=== PATIENT | male | born 1990 | race Caucasian/White ===

== ENCOUNTER 2016-12-03 15:07 | Emergency (ER) | payer OTHER, MEDICAID ==
[2016-12-03 15:15] VITALS: O2SAT 93
[2016-12-03] MEDS ORDERED: ALBUTEROL INH PREPACK MDI TAKEHOME ONE (15:33)
[2016-12-03] MEDS ORDERED: DEXAMETHASONE 4 MG TAB PO ONE (15:44)
--- NOTE | 2016-12-03 15:48 | EDPHY ---
H & P Stated Complaint: hx asthma/sob since friday/is out of his inhaler Time Seen by Provider: 12/03/16 15:19 HPI/ROS: CHIEF COMPLAINT: asthma HISTORY OF PRESENT ILLNESS: The patient is a 26-year-old man who comes to the emergency department requesting he a refill of his albuterol. He states that he has intermittent asthma but rarely requires an inhaler. He ran out of his about a year ago and this is 1 that he had borrowed from a friend. He denies any recent fevers. Over the last 2-3 days he has increasing shortness of breath and wheezing. REVIEW OF SYSTEMS: Constitutional: denies: chills, fever, recent illness, recent injury EENTM: denies: blurred vision, double vision, nose congestion Respiratory: See HPI Cardiac: denies: chest pain, irregular heart rate, lightheadedness, palpitations Gastrointestinal/Abdominal: denies: abdominal pain, diarrhea, nausea, vomiting, blood streaked stools Genitourinary: denies: dysuria, frequency, hematuria, pain Musculoskeletal: denies: joint pain, muscle pain Skin: denies: lesions, rash, jaundice, bruising Neurological: denies: headache, numbness, paresthesia, tingling, dizziness, weakness Hematologic/Lymphatic: denies: blood clots, easy bleeding, easy bruising Immunologic/allergic: denies: HIV/AIDS, transplant EXAM: GENERAL: Well-appearing, well-nourished and in no acute distress. HEAD: Atraumatic, normocephalic. EYES: Pupils equal round and reactive to light, extraocular movements intact, sclera anicteric, conjunctiva are normal. ENT: TMs normal, nares patent, oropharynx clear without exudates. Moist mucous membranes. NECK: Normal range of motion, supple without lymphadenopathy or JVD. LUNGS: Bilateral wheezing HEART: Regular rate and rhythm without murmurs, rubs or gallops. ABDOMEN: Soft, nontender, normoactive bowel sounds. No guarding, no rebound. No masses appreciated. BACK: No CVA tenderness, no spinal tenderness, step-offs or deformities EXTREMITIES: Normal range of motion, no pitting or edema. No clubbing or cyanosis. NEUROLOGICAL: Cranial nerves II through XII grossly intact. Normal speech, normal gait. 5/5 strength, normal movement in all extremities, normal sensation PSYCH: Normal mood, normal affect. SKIN: Warm, dry, normal turgor, no visible rashes or lesions. Source: Patient Exam Limitations: No limitations - Personal History Current Tetanus/Diphtheria Vaccine: Yes - Medical/Surgical History Hx Asthma: Yes Hx Chronic Respiratory Disease: No Hx Diabetes: No Hx Cardiac Disease: No Hx Renal Disease: No Hx Cirrhosis: No Hx Alcoholism: No Hx HIV/AIDS: No Hx Splenectomy or Spleen Trauma: No Other PMH: DEPRESSION - Family History Significant Family History: No pertinent family hx - Social History Smoking Status: Current every day smoker Alcohol Use: Occasionally Drug Use: Marijuana Constitutional: Initial Vital Signs Temperature (C) 36.4 C 12/03/16 15:13 Heart Rate 82 12/03/16 15:13 Respiratory Rate 17 12/03/16 15:13 Blood Pressure 119/82 H 12/03/16 15:13 O2 Sat (%) 93 12/03/16 15:13 O2 Delivery Mode Room Air Allergies/Adverse Reactions: duloxetine HCl [From Cymbalta] Allergy (Verified 12/03/16 15:13) zolpidem tartrate [From Ambien] Allergy (Verified 12/03/16 15:13) Home Medications: Medication Instructions Recorded Albuterol 5 mg/ml INH 12/03/16 Albuterol [Proventil Inhaler] 1 - 2 puffs IH Q4H #1 mdi 12/03/16 Medical Decision Making ED Course/Re-evaluation: Patient refuses DuoNeb. He states that the inhaler works much better for him. He also requested steroid burst. He declines observation. I will prescribe him a refill. Differential Diagnosis: Partial list of the Differential diagnosis considered include but were not limited to; asthma exacerbation, upper respiratory tract infection and although unlikely based on the history and physical exam, I also considered bronchitis, pneumonia, congestive heart failure. I discussed these differential diagnoses and the plan with the patient as well as the usual and expected course. The patient understands that the diagnosis is provisional and that in medicine we are not always correct and that further workup is often warranted. Usual and customary warnings were given. All of the patient's questions were answered. The patient was instructed to return to the emergency department should the symptoms at all worsen or return, otherwise to followup with the physician as we discussed. Departure - Departure Disposition: Home, Routine, Self-Care Clinical Impression: Exacerbation of asthma Condition: Fair Instructions: Asthma (ED) Referrals: [facility],. [Clinic] - As per Instructions Prescriptions: Albuterol [Proventil Inhaler] 1 - 2 puffs IH Q4H #1 mdi
[2016-12-03 16:18] VITALS: BP 120/74; PULSE 85; RESP 18; TEMP 97.9
== END 2016-12-03 16:18 | disposition home or self-care (01) ==
DX: J45.901 Unspecified asthma with (acute) exacerbation (principal); F17.200 Nicotine dependence, unspecified, uncomplicated

== ENCOUNTER 2017-04-30 14:45 | Emergency (ER) | payer OTHER, MEDICAID ==
[2017-04-30 14:49] VITALS: RESP 16
[2017-04-30] MEDS ORDERED: KETOROLAC 30 MG/1 ML SDV IM ONE (15:25)
--- NOTE | 2017-04-30 15:27 | EDPHY ---
H & P Stated Complaint: L lateral pain in neck x 3 days;thinks he slept wrong on it Time Seen by Provider: 04/30/17 15:13 HPI/ROS: Chief complaint: Left-sided neck pain History of present illness: This is a 26-year-old male who presents to the emergency department for left-sided neck pain. Patient reports symptoms began 3 days ago. He was skateboarding when he fell off and landed onto his knees. His head whipped forward. However he did not hit his head or neck against the ground. Initially he felt well. However over the last few days he has had increasing left-sided neck pain. It makes it difficult to move the neck. He denies other associated signs or symptoms including no headache, no pain along the spine itself, no neurologic symptoms such as paresthesias, weakness or paralysis or bowel or bladder dysfunction. No other complaints. - Personal History Current Tetanus Diphtheria and Acellular Pertussis (TDAP): Yes - Medical/Surgical History Hx Asthma: Yes Hx Chronic Respiratory Disease: No Hx Diabetes: No Hx Cardiac Disease: No Hx Renal Disease: No Hx Cirrhosis: No Hx Alcoholism: No Hx HIV/AIDS: No Hx Splenectomy or Spleen Trauma: No Other PMH: DEPRESSION - Social History Smoking Status: Current every day smoker - Physical Exam Exam: General Appearance: Alert, nontoxic Eyes: PERRLA ENT: No hemotympanum, no Mishra sign, no raccoon eyes. Respiratory: Lungs clear to auscultation bilaterally Cardiac: Regular rate and rhythm. Neurological: Alert and oriented x4. Cranial nerves 2-12 grossly intact. Strength and sensation intact and symmetrical. Skin: No lesions consistent with trauma. Musculoskeletal: Head is nontender without crepitus or bony deformity. The spine is nontender along its entire length, no crepitus, bony deformity or step- off appreciated. Chest wall intact palpation. Patient moving all extremities without difficulty. Patient is tender over the left mid aspect of the trapezius muscle, I can reproduce his pain by palpating this region. Constitutional: Initial Vital Signs Temperature (C) 37 C 04/30/17 14:46 Heart Rate 68 04/30/17 14:46 Respiratory Rate 16 04/30/17 14:46 Blood Pressure 138/84 H 04/30/17 14:46 O2 Sat (%) 98 04/30/17 14:46 O2 Delivery Mode Room Air Allergies/Adverse Reactions: duloxetine HCl [From Cymbalta] Allergy (Verified 04/30/17 14:46) zolpidem tartrate [From Ambien] Allergy (Verified 04/30/17 14:46) Home Medications: Medication Instructions Recorded Albuterol 5 mg/ml INH 12/03/16 Albuterol [Proventil Inhaler] 1 - 2 puffs IH Q4H #1 mdi 12/03/16 Cyclobenzaprine [Flexeril 10 MG 10 mg PO TID PRN #15 tab 04/30/17 (*)] Venlafaxine Xr [Effexor Xr 75MG 75 mg PO 04/30/17 (*)] Medical Decision Making ED Course/Re-evaluation: Patient seen under the supervision of my secondary supervising physician Dr. Richy Gamble. Patient presents to the emergency department for left sided neck pain. He is tender over the trapezius. I believe likely this is a sprain/ strain. My suspicion for serious pathology is low. He meets nexus criteria and Welsh C-spine criteria and does not warrant imaging studies of the C- spine. He is neurologically intact. He has no other symptoms. I will treat him with ibuprofen and Flexeril. Home care is discussed. Return precautions are given. Differential Diagnosis: Included but not limited to sprain or strain, bony fracture, herniated intervertebral disc - Data Points Medications Given: Discontinued Medications Ketorolac Tromethamine (Toradol) 60 mg IM EDNOW ONE Stop: 04/30/17 15:26 Last Admin: 04/30/17 15:36 Dose: 60 mg Departure - Departure Disposition: Home, Routine, Self-Care Clinical Impression: Cervical strain Qualifiers: Encounter type: initial encounter Qualified Code(s): S16.1XXA - Strain of muscle, fascia and tendon at neck level, initial encounter Condition: Good Instructions: Cervical Strain (ED) Additional Instructions: Follow-up with a primary care doctor for recheck Use ibuprofen 800 mg 3 times a day for the next 2-3 days for pain control You can also use the Flexeril for muscle relaxation, this is sedating If symptoms worsen or new symptoms develop return to the emergency room for recheck Referrals: [facility],. [Clinic] - As per Instructions Stand Alone Forms: Work Excuse Prescriptions: Cyclobenzaprine [Flexeril 10 MG (*)] 10 mg PO TID PRN #15 tab PRN Reason: Spasms
[2017-04-30 15:38] VITALS: BP 141/110; PULSE 70; TEMP 98.2; O2SAT 97
== END 2017-04-30 15:42 | disposition home or self-care (01) ==
DX: S16.1XXA Strain of muscle, fascia and tendon at neck level, initial encounter (principal); F17.200 Nicotine dependence, unspecified, uncomplicated; J45.909 Unspecified asthma, uncomplicated; V00.131A Fall from skateboard, initial encounter; Y99.8 Other external cause status; Y93.51 Activity, roller skating (inline) and skateboarding
CPT/HCPCS: J1885